=== PATIENT | female | born 1980 | race Hispanic/Latino ===

== ENCOUNTER 2017-10-22 04:25 | Emergency (ER) | payer MEDICAID ==
[2017-10-22 04:41] VITALS: BP 149/92
--- NOTE | 2017-10-22 05:19 | Emergency Department Report ---
Chief Complaint: Medical Clearance Stated Complaint: MEDICINE REFILL Time Seen by Provider: 10/22/17 04:57 - HPI History of Present Illness: 37-year-old female presents to ED's disease in the shoe would like her asthma medication refill. Patient's states that she has asthma and is out of her pro- air inhaler. She denies fevers/chills or shortness of breath/cough/chest pain/ dizziness/lightheadedness or any other problems. - ROS Review of Systems: As noted in HPI - Exam Vital Signs: Vital Signs 10/22/17 04:39 Temperature 97.4 F L Pulse Rate 103 H Respiratory 18 Rate Blood Pressure 149/92 [Left] O2 Sat by Pulse 96 Oximetry Physical Exam: GENERAL: Alert and oriented x3, no apparent distress, Normal Gait, atraumatic. NOSE: Nose symetrical, Nontender,Nares appeared normal. LUNGS: Symetrical with respiration, No wheezing, no rales or crackles, CTAB. No use of bullion weigher muscles HEART: S1, S2 present, regular rate and rhythm without murmur, no rubs, no gallops. Non tender to palpation SKIN: Warm and dry, No lesions, No ulceration or induration present. MSE screening note: Focused history and physical exam performed. Due to findings the following was ordered: ED Medical Decision Making - Medical Decision Making 37-year-old female presents with asthma medication refill ED course: Post evaluation patient showed no sign of respiratory distress, no wheezing Resting comfortably in ED , walking in and out of room I discussed with the patient to follow up with primary care physician Vital signs are normal patient is satting 99% oxygen on room air ED Disposition for MSE Clinical Impression: Medication refill Asthma Qualifiers: Asthma severity: mild Asthma persistence: intermittent Asthma complication type : uncomplicated Qualified Code(s): J45.20 - Mild intermittent asthma, uncomplicated Disposition: - TO HOME OR SELFCARE Is pt being admited?: No Does the pt Need Aspirin: No Condition: Stable Instructions: Asthma (ED) Additional Instructions: Make sure to follow up with the primary care physician as discussed. Take all your medications as you've been prescribed. If you have any worsening symptoms or develop new symptoms please return to ED immediately. Prescriptions: ALBUTEROL Inhaler [Proair] 2 puff IH TID PRN #1 pump PRN Reason: Shortness Of Breath Referrals: ELIZABETH LAND MD [Primary Care Provider] - 3-5 Days [facility] [Outside] - 3-5 Days [facility] [Outside] - 3-5 Days [facility] [Outside] - 3-5 Days Forms: Work/School Release Form(ED) Time of Disposition: 05:19
== END 2017-10-22 05:28 | disposition home or self-care (01) ==
LOC: ED 04:25
DX: Z76.0 Encounter for issue of repeat prescription (principal); J45.20 Mild intermittent asthma, uncomplicated
CPT/HCPCS: 99282

== ENCOUNTER 2017-10-23 09:26 | Emergency (ER) | payer MEDICAID ==
[2017-10-23 10:01] VITALS: BP 133/85
[2017-10-23 11:04] LABS: HCG Qualitative,Urine Negative (Negative)
[2017-10-23 11:09] LABS: Bilirubin,Urine NEG (Negative); Blood,Urine LG (Negative); Color,Urine Yellow (Yellow); Mucus,Urine FEW /HPF; Protein,Urine <15 mg/dL mg/dL (Negative); Urobilinogen,Urine < 2.0 mg/dL (<2.0)
[2017-10-23 11:13] LABS: Amphetamine Screen,Urine PRESUMPTIVE NEGATIVE; Benzodiazepines Screen,Urine PRESUMPTIVE NEGATIVE; Cannabinoid Screen,Urine PRESUMPTIVE NEGATIVE; Cocaine Screen,Urine PRESUMPTIVE NEGATIVE; Methadone Screen,Urine PRESUMPTIVE NEGATIVE; Opiate Screen,Urine PRESUMPTIVE NEGATIVE
[2017-10-23 19:19] LABS: Basophils # (Auto) 0.3 K/mm3 (0.0-0.1); Basophils % (Auto) 2.8 % (0.0-1.8); Eosinophils # (Auto) 0.5 K/mm3 (0.0-0.4); Eosinophils % (Auto) 4.3 % (0.0-4.3); Hematocrit 44.4 % (30.3-42.9); Hemoglobin 14.5 gm/dl (10.1-14.3); Lymphocytes # (Auto) 3.1 K/mm3 (1.2-5.4); Lymphocytes % (Auto) 28.8 % (13.4-35.0); Mean Corpuscular HGB Conc 33 % (30-34); Mean Corpuscular Hemoglobin 28 pg (28-32); Mean Corpuscular Volume 85 fl (79-97); Monocytes # (Auto) 0.4 K/mm3 (0.0-0.8); Monocytes % (Auto) 3.9 % (0.0-7.3); Platelet Count 293 K/mm3 (140-440); Red Blood Count 5.22 M/mm3 (3.65-5.03); Red Cell Distribution Width 13.4 % (13.2-15.2)
[2017-10-23 19:41] LABS: BUN/Creatinine Ratio 20; Blood Urea Nitrogen 10 mg/dL (7-17); Calcium 8.5 mg/dL (8.4-10.2); Hemolysis Index 7
[2017-10-23] MEDS ORDERED: K-DUR PO ONE (22:01)
--- NOTE | 2017-10-23 22:05 | Emergency Department Report ---
ED Psych HPI - General Chief Complaint: Psych Stated Complaint: MENTAL HEALTH EVALUATION Time Seen by Provider: 10/23/17 22:00 Source: patient Mode of arrival: Ambulatory - History of Present Illness Initial Comments: Patient says she is here because she has schizophrenia and wants her medications assessed. She however states that she has an appointment with her psychiatrist tomorrow. She states she has voices telling her "TADAR". She denies any suicidal or homicidal ideations. Complaint: other (hearing voices) -: Gradual Associated Psychiatric Symptoms: auditory hallucinations History of same: Yes Quality: intermittent Improves With: none Worsens With: none Associated Symptoms: denies other symptoms Treatments Prior to Arrival: none - Related Data Home Medications Medication Instructions Recorded Confirmed Last Taken Perphenazine [Trilafon] 2 mg PO DAILY 04/05/15 10/23/17 Unknown clonazePAM [Klonopin] 1 mg PO DAILY 04/05/15 10/23/17 Unknown Previous Rx's Medication Instructions Recorded Last Taken Type Ciprofloxacin HCl [Ciprofloxacin 500 mg PO Q12H #6 tab 04/05/15 Unknown Rx TAB] ALBUTEROL Inhaler [Proair] 2 puff IH TID PRN #1 pump 10/22/17 Unknown Rx Allergies Allergy/AdvReac Type Severity Reaction Status Date / Time No Known Allergies Allergy Verified 04/05/15 01:19 ED Review of Systems ROS: Stated complaint: MENTAL HEALTH EVALUATION Other details as noted in HPI Comment: All other systems reviewed and negative ED Past Medical Hx - Past Medical History Previous Medical History?: Yes Hx Diabetes: Yes (out of glipizide) Hx Psychiatric Treatment: Yes ([facility] 3-4x, [facility] 2x [place],schizo) Hx Asthma: Yes - Surgical History Past Surgical History?: Yes Additional Surgical History: TONSILECTOMY - Social History Smoking Status: Current Every Day Smoker Substance Use Type: Prescribed - Medications Home Medications: Home Medications Medication Instructions Recorded Confirmed Last Taken Type Ciprofloxacin HCl [Ciprofloxacin 500 mg PO Q12H #6 tab 04/05/15 10/23/17 Unknown Rx TAB] Perphenazine [Trilafon] 2 mg PO DAILY 04/05/15 10/23/17 Unknown History clonazePAM [Klonopin] 1 mg PO DAILY 04/05/15 10/23/17 Unknown History ALBUTEROL Inhaler [Proair] 2 puff IH TID PRN #1 pump 10/22/17 10/23/17 Unknown Rx ED Physical Exam - General Limitations: Other General appearance: alert, in no apparent distress - Head Head exam: Present: atraumatic, normocephalic - Eye Eye exam: Present: normal appearance. Absent: PERRL - ENT ENT exam: Present: mucous membranes moist - Neck Neck exam: Present: normal inspection - Respiratory Respiratory exam: Present: normal lung sounds bilaterally. Absent: respiratory distress - Cardiovascular Cardiovascular Exam: Present: regular rate, normal rhythm. Absent: systolic murmur, diastolic murmur, rubs, gallop - GI/Abdominal GI/Abdominal exam: Present: soft, normal bowel sounds. Absent: distended - Rectal Rectal exam: Present: deferred - Extremities Exam Extremities exam: Present: normal inspection - Back Exam Back exam: Present: normal inspection - Neurological Exam Neurological exam: Present: alert, oriented X3 - Psychiatric Psychiatric exam: Present: normal affect, normal mood - Skin Skin exam: Present: warm, dry, intact, normal color. Absent: rash ED Course Vital Signs 10/23/17 09:58 Temperature 97.4 F L Pulse Rate 111 H Respiratory 20 Rate Blood Pressure 133/85 O2 Sat by Pulse 98 Oximetry ED Medical Decision Making - Lab Data Result diagrams: 10/23/17 18:58 10/23/17 18:58 Critical care attestation.: If time is entered above; I have spent that time in minutes in the direct care of this critically ill patient, excluding procedure time. ED Disposition Clinical Impression: Schizophrenia Disposition: DC-01 TO HOME OR SELFCARE Is pt being admited?: No Does the pt Need Aspirin: No Condition: Stable Instructions: Schizophrenia (ED) Additional Instructions: Follow-up with your psychiatrist tomorrow as planned. Referrals: PRIMARY CARE, [Primary Care Provider] - 3-5 Days Time of Disposition: 22:08 Print Language: MOHAWK
== END 2017-10-23 22:34 | disposition home or self-care (01) ==
LOC: ED 09:26
DX: F20.9 Schizophrenia, unspecified (principal); E11.9 Type 2 diabetes mellitus without complications; F17.200 Nicotine dependence, unspecified, uncomplicated
CPT/HCPCS: 36415; 80048; 80307; 81001; 81025; 85025; 99283; G0480; 80320

== ENCOUNTER 2017-10-24 00:05 | Emergency (ER) | payer MEDICAID | END 2017-10-24 00:57 | disposition left against medical advice (07) | LOC: ED 00:05 | DX: F99 Mental disorder, not otherwise specified (principal); Z53.21 Procedure and treatment not carried out due to patient leaving prior to being seen by health care provider ==

== ENCOUNTER 2018-10-03 10:49 | Emergency (ER) | payer MEDICAID | END 2018-10-03 12:22 | disposition left against medical advice (07) | LOC: ED 10:49 ==

== ENCOUNTER 2019-05-03 20:29 | Emergency (ER) | payer MEDICAID ==
[2019-05-03 21:29] LABS: Basophils # (Auto) 0.1 K/mm3 (0.0-0.1); Basophils % (Auto) 1.1 % (0.0-1.8); Eosinophils # (Auto) 0.4 K/mm3 (0.0-0.4); Eosinophils % (Auto) 3.5 % (0.0-4.3); Hematocrit 41.8 % (30.3-42.9); Hemoglobin 14.2 gm/dl (10.1-14.3); Lymphocytes # (Auto) 3.3 K/mm3 (1.2-5.4); Lymphocytes % (Auto) 32.9 % (13.4-35.0); Mean Corpuscular HGB Conc 34 % (30-34); Mean Corpuscular Volume 83 fl (79-97); Monocytes # (Auto) 0.6 K/mm3 (0.0-0.8); Monocytes % (Auto) 6.4 % (0.0-7.3); Platelet Count 285 K/mm3 (140-440); Red Blood Count 5.02 M/mm3 (3.65-5.03); Red Cell Distribution Width 13.9 % (13.2-15.2)
[2019-05-03 21:42] LABS: BUN/Creatinine Ratio 13; Blood Urea Nitrogen 8 mg/dL (7-17); Hemolysis Index 7
--- NOTE | 2019-05-03 22:08 | Emergency Department Report ---
ED Psych HPI - General Chief Complaint: Psych Stated Complaint: HEARING VOICES/INSOMNIA Time Seen by Provider: 05/03/19 20:47 Source: patient, EMS Mode of arrival: Stretcher - History of Present Illness Initial Comments: This is a 38-year-old female nontoxic, well nourished in appearance, no acute signs of distress presents to the ED with c/o of depression with audio and visual hallucinations. Patient stated she has been taking her medications for psych but stated is not helping her. Patient stated "want to bang my head against the green door to open my head". Patient denies any homicidal ideation. Patient denies any fever, chills, nausea, vomiting, chest pain, shortness of breath, headache or stiff neck. Patient otherwise denies any symptoms. Denies any alcohol or drug consumption. Patient denies any allergies. MD Complaint: feels depressed, other (audio and visual hallucinations) -: days(s) Associated Psychiatric Symptoms: depression, auditory hallucinations, visual hallucinations History of same: Yes Quality: constant Improves With: none Worsens With: none Associated Symptoms: denies other symptoms. denies: confusion, headache, shortness of breath, nausea, vomiting, syncope, insomnia - Related Data Home Medications Medication Instructions Recorded Confirmed Last Taken Perphenazine [Trilafon] 2 mg PO DAILY 04/05/15 10/23/17 Unknown clonazePAM [Klonopin] 1 mg PO DAILY 04/05/15 10/23/17 Unknown Previous Rx's Medication Instructions Recorded Last Taken Type Ciprofloxacin HCl [Ciprofloxacin 500 mg PO Q12H #6 tab 04/05/15 Unknown Rx TAB] ALBUTEROL Inhaler (OR & NICU) 2 puff IH TID PRN #1 pump 10/22/17 Unknown Rx [Proair] Allergies Allergy/AdvReac Type Severity Reaction Status Date / Time No Known Allergies Allergy Verified 04/05/15 01:19 ED Review of Systems ROS: Stated complaint: HEARING VOICES/INSOMNIA Other details as noted in HPI Constitutional: denies: chills, fever Eyes: denies: eye pain, eye discharge, vision change ENT: denies: ear pain, throat pain Respiratory: denies: cough, shortness of breath, wheezing Cardiovascular: denies: chest pain, palpitations Endocrine: no symptoms reported Gastrointestinal: denies: abdominal pain, nausea, diarrhea Genitourinary: denies: urgency, dysuria, discharge Musculoskeletal: denies: back pain, joint swelling, arthralgia Skin: denies: rash, lesions Neurological: denies: headache, weakness, paresthesias Psychiatric: depression, auditory hallucinations, visual hallucinations. denies: anxiety, homicidal thoughts Hematological/Lymphatic: denies: easy bleeding, easy bruising ED Past Medical Hx - Past Medical History Hx Diabetes: Yes (out of glipizide) Hx Psychiatric Treatment: Yes ([facility] 3-4x, [facility] 2x [place],schizo) Hx Asthma: Yes - Surgical History Additional Surgical History: TONSILECTOMY - Social History Smoking Status: Current Every Day Smoker Substance Use Type: None - Medications Home Medications: Home Medications Medication Instructions Recorded Confirmed Last Taken Type Ciprofloxacin HCl [Ciprofloxacin 500 mg PO Q12H #6 tab 04/05/15 10/23/17 Unknown Rx TAB] Perphenazine [Trilafon] 2 mg PO DAILY 04/05/15 10/23/17 Unknown History clonazePAM [Klonopin] 1 mg PO DAILY 04/05/15 10/23/17 Unknown History ALBUTEROL Inhaler (OR & NICU) 2 puff IH TID PRN #1 pump 10/22/17 10/23/17 Unknown Rx [Proair] ED Physical Exam - General Limitations: No Limitations General appearance: alert, in no apparent distress - Head Head exam: Present: atraumatic, normocephalic - Neck Neck exam: Present: normal inspection, full ROM. Absent: tenderness, meningismus, lymphadenopathy - Respiratory Respiratory exam: Present: normal lung sounds bilaterally. Absent: respiratory distress, wheezes - Cardiovascular Cardiovascular Exam: Present: regular rate, normal rhythm - GI/Abdominal GI/Abdominal exam: Present: soft, normal bowel sounds. Absent: distended - Extremities Exam Extremities exam: Present: normal inspection, full ROM - Back Exam Back exam: Present: normal inspection, full ROM - Neurological Exam Neurological exam: Present: alert, oriented X3, normal gait - Psychiatric Psychiatric exam: Present: depressed, manic. Absent: agitated, anxious, flat affect, homicidal ideation, suicidal ideation - Skin Skin exam: Present: warm, dry, intact, normal color. Absent: rash ED Course Vital Signs 05/03/19 20:44 Temperature 98 F Pulse Rate 96 H Respiratory 18 Rate Blood Pressure 114/66 [Left] O2 Sat by Pulse 95 Oximetry - Reevaluation(s) Reevaluation #1: 05/03/19 22:07 Patient is speaking in full sentences with no signs of distress noted. ED Medical Decision Making - Lab Data Result diagrams: 05/03/19 21:07 05/03/19 21:07 - Medical Decision Making This is a 30-year-old female that presents with visual and audio hallucinations. Patient is currently stable and was examined by me. Patient has been placed on 1013 and patient to be examined and evaluated by psychiatrist. Patient will remain in the ER until cleared by psychiatry. At time of admission, the patient does not seem toxic or ill in appearance. No acute signs of distress noted. Patient agrees to admission treatment plan of care. No further questions noted by the patient. Critical care attestation.: If time is entered above; I have spent that time in minutes in the direct care of this critically ill patient, excluding procedure time. ED Disposition Clinical Impression: Visual hallucinations, Auditory hallucinations Depression Qualifiers: Depression Type: unspecified Qualified Code(s): F32.9 - Major depressive disorder, single episode, unspecified Disposition: DC/TX-65 PSY HOSP/PSY UNIT Is pt being admited?: No Condition: Stable
[2019-05-04 01:13] LABS: Bacteria,Urine 1+ /HPF (Negative); Bilirubin,Urine NEG (Negative); Blood,Urine NEG (Negative); Color,Urine Yellow (Yellow); Mucus,Urine FEW /HPF; Protein,Urine <15 mg/dL mg/dL (Negative); Urobilinogen,Urine < 2.0 mg/dL (<2.0)
[2019-05-04 01:19] LABS: Amphetamine Screen,Urine PRESUMPTIVE NEGATIVE; Benzodiazepines Screen,Urine PRESUMPTIVE NEGATIVE; Cannabinoid Screen,Urine PRESUMPTIVE NEGATIVE; Cocaine Screen,Urine PRESUMPTIVE NEGATIVE; Methadone Screen,Urine PRESUMPTIVE NEGATIVE; Opiate Screen,Urine PRESUMPTIVE NEGATIVE
--- NOTE | 2019-05-04 09:21 | Consultation ---
History of Present Illness - Reason for Consult Consult date: 05/04/19 Reason for consult: Mental Health Evaluation Requesting physician: LISA CIFUENTES - Chief Complaint Chief complaint: "The voices are terrible" - History of Present Psychiatric Illness 38 y.o. white female who presented to the ER for acute psychosis. Today the patient was disorganized during the assessment. She stated that she cannot sleep because of the voices, but could not explain what the voices are saying. She stated that she was scared, so she called EMS. Throughout the interview, the patient appeared preoccupied, possibly responding to some type of stimuli. She denies SI/HI's and VH's. She denies a poor appetite, but acknowledged erratic sleep. She denies recreational drug use and alcohol consumption (etoh). Medications and Allergies Allergies Allergy/AdvReac Type Severity Reaction Status Date / Time No Known Allergies Allergy Verified 04/05/15 01:19 Home Medications Medication Instructions Recorded Confirmed Last Taken Type Perphenazine [Trilafon] 2 mg PO DAILY 04/05/15 05/04/19 Unknown History clonazePAM [Klonopin] 1 mg PO DAILY 04/05/15 05/04/19 Unknown History metFORMIN [Glucophage] 850 mg PO BID 05/04/19 05/04/19 Unknown History Past psychiatric history - Past Medical History Past Medical History: No medical history Past Surgical History: No surgical history - past Psychiatric treatment and history psychiatric treatment history: Several inpatient psy settings in the past. Denies a fam psy hx. - Social History Social history: lives with family Mental Status Exam - Vital signs Last Vital Signs Temp 98.3 F 05/04/19 08:00 Pulse 89 05/04/19 08:00 Resp 18 05/04/19 08:00 BP 125/81 05/04/19 08:00 Pulse Ox 95 05/04/19 08:00 - Exam Narrative exam: MSE: Appearance: in hospital attire Behavior: regular eye contact Speech: regular rate and tone Mood: preoccupied Affect: congruent to mood Thought Process: disorganized Thought Content: denies SI/HI's and AVH's, paranoid Motor Activity: sitting in a chair Cognition: A/O x 3 Insight: poor Judgment: poor Results Result Diagrams: 05/03/19 21:07 05/03/19 21:07 Abnormal lab results 05/03/19 05/03/19 05/03/19 Range/Units 21:07 21:07 21:07 Potassium 3.5 L (3.6-5.0) mmol/L Carbon Dioxide 21 L (22-30) mmol/L Creatinine 0.6 L (0.7-1.2) mg/dL Glucose 134 H (65-100) mg/dL Ur Specific [place] (1.003-1.030) Salicylates < 0.3 L (2.8-20.0) mg/dL Acetaminophen < 5.0 L (10.0-30.0) ug/mL 05/04/19 Range/Units 00:00 Potassium (3.6-5.0) mmol/L Carbon Dioxide (22-30) mmol/L Creatinine (0.7-1.2) mg/dL Glucose (65-100) mg/dL Ur Specific [place] 1.042 H (1.003-1.030) Salicylates (2.8-20.0) mg/dL Acetaminophen (10.0-30.0) ug/mL All other labs normal. Assessment and Plan Assessment and plan: Impression: Unspecified Psychosis. Today the patient was calm, but disorganized during the assessment. UDS was negative. DDx: Schizophrenia Recommendation/Plan: Continue 1013 and start Trilafon 8 mg PO BID for psychosis and Melatonin 5 mg PO HS PRN for sleep. Dispo: The patient was referred to inpatient psy services. Will staff with Dr Annita Murguia.
[2019-05-04] MEDS ORDERED: PERPHENAZINE 4 MG TAB PO SCH (10:00)
[2019-05-04] MEDS ORDERED: clonazePAM 0.5 MG TAB PO SCH (11:30)
[2019-05-04] MEDS ORDERED: NICOTINE 21 MG/24 HR PATCH TD ONE (11:30)
[2019-05-04 13:23] VITALS: BP 123/70
[2019-05-04] MEDS ORDERED: metFORMIN 500 MG TAB PO SCH (17:00)
[2019-05-04] MEDS ORDERED: MELATONIN 5 MG TAB PO PRN (22:00)
== END 2019-05-04 19:16 ==
LOC: ED 20:29
DX: F32.9 Major depressive disorder, single episode, unspecified (principal); E11.9 Type 2 diabetes mellitus without complications; J45.909 Unspecified asthma, uncomplicated; F17.200 Nicotine dependence, unspecified, uncomplicated; Z90.89 Acquired absence of other organs; Z98.890 Other specified postprocedural states; Z79.899 Other long term (current) drug therapy
CPT/HCPCS: 36415; 80048; 80307; 80320; 81001; 82962; 84703; 85025; G0480